=== PATIENT | male | born 1950 | race Caucasian/White ===

== ENCOUNTER → 2017-05-27 | Outpatient (CLI) | payer OTHER ==
[~2017-05-27] MED LIST: GASTROGRAFIN SOLUTION 30ML (Q9963) As Ordered; ISOVUE-370 76% 100ML VIAL (Q9967) As Ordered
== END ==
LOC: M RAD 07:38
DX: K43.2 Incisional hernia without obstruction or gangrene (principal); D73.4 Cyst of spleen
CPT/HCPCS: Q9963

== ENCOUNTER 2017-06-23 06:57 | Day surgery (SDC) | payer OTHER ==
[2017-06-23] MEDS: LR 1,000 ML IV (07:45)
[2017-06-23] MEDS ORDERED: MIDAZOLAM INJ 2 MG/2 ML VIAL (J2250) As Ordered (08:00)
[2017-06-23] MEDS ORDERED: PROPOFOL 200 MG/20 ML VIAL As Ordered (08:00)
[2017-06-23] MEDS ORDERED: ROCURONIUM BROMIDE 50 MG/5 ML VIAL As Ordered ×2 (08:00→09:26)
[2017-06-23] MEDS ORDERED: fentaNYL 100 MCG/2 ML INJECTION (J3010) As Ordered (08:01)
[2017-06-23] MEDS ORDERED: LR 1,000 ML IV ×3 (08:45→10:15)
[2017-06-23] MEDS ORDERED: ePHEDrine INJ 50 MG/ML VIAL As Ordered (09:08)
[2017-06-23] MEDS: CEFAZOLIN SOD 1 GM in APPROPRIATE DILUENT 1 EA IV (09:10)
[2017-06-23] MEDS ORDERED: ONDANSETRON 4MG/2ML VIAL (J2405) As Ordered (09:19)
[2017-06-23] MEDS ORDERED: NEOSTIGMINE 10 MG/10 ML VIAL (J2710) As Ordered (09:21)
[2017-06-23] MEDS ORDERED: GLYCOPYRROLATE INJ 0.2 MG/ML 2 ML VIAL As Ordered ×2 (09:22→09:26)
[2017-06-23] MEDS ORDERED: SUGAMMADEX SODIUM 500 MG/5 ML VIAL (BRIDION) As Ordered (09:36)
[2017-06-23] MEDS: BUPIVACAINE HCL 0.25% 10 ML VIAL As Ordered (09:43)
[2017-06-23] MEDS: LIDOCAINE W/EPINEPHRINE 1% 20ML VIAL As Ordered (09:43)
[2017-06-23] MEDS ORDERED: PERCOCET 5MG/325MG TAB As Ordered (09:59)
[2017-06-23] MEDS ORDERED: KETOROLAC 30 MG/ML VIAL (J1885) As Ordered (09:59)
[2017-06-23] MEDS: KETOROLAC 30 MG/ML VIAL (J1885) IV (10:07)
[2017-06-23] MEDS ORDERED: ONDANSETRON 4MG/2ML VIAL (J2405) IV ×2 (10:15)
[2017-06-23] MEDS ORDERED: NORCO, ANEXSIA 5/325MG TABLET (HYDROcodone/ACETAMINOPHEN) PO (10:15)
[2017-06-23] MEDS ORDERED: fentaNYL 100 MCG/2 ML INJECTION (J3010) IV (10:15)
[2017-06-23] MEDS ORDERED: MORPHINE 4 MG/ML 1ML VIAL (J2270) IV (10:15)
[2017-06-23] MEDS: PERCOCET 5MG/325MG TAB PO ×2 (10:16→10:45)
== END 2017-06-23 11:55 | disposition home or self-care (01) ==
LOC: M SDC 06:57
DX: K43.9 Ventral hernia without obstruction or gangrene (principal); K42.9 Umbilical hernia without obstruction or gangrene; E78.5 Hyperlipidemia, unspecified; E78.00 Pure hypercholesterolemia, unspecified; M17.11 Unilateral primary osteoarthritis, right knee; R06.83 Snoring; Z79.82 Long term (current) use of aspirin; Z85.46 Personal history of malignant neoplasm of prostate; Z86.59 Personal history of other mental and behavioral disorders
CPT/HCPCS: 49570

== ENCOUNTER → 2019-10-30 | Outpatient (CLI) | payer OTHER ==
[~2019-10-30] MED LIST changes: +ASPI81TA26 PO; +ATOR1TAB21 PO; -GASTROGRAFIN SOLUTION 30ML (Q9963) As Ordered; +GLUC100020 PO; -ISOVUE-370 76% 100ML VIAL (Q9967) As Ordered; +MULT1TAB10 PO
== END ==
LOC: M LABSMTC 09:11
PROVIDERS: ATTEND Anesthesiology
DX: Z03.818 Encounter for observation for suspected exposure to other biological agents ruled out (principal); Z11.59 Encounter for screening for other viral diseases
CPT/HCPCS: C9803; U0003

== ENCOUNTER 2019-11-02 09:41 | Day surgery (SDC) | payer OTHER ==
[~2019-11-02] VITALS: Ht 160 cm; Wt 82.1 kg
[~2019-11-02 09:41] MED LIST changes: +NS 1,000 ML IV ONE
--- NOTE | 2019-11-02 11:33 | ROOR ---
Patient Name: Vaughn Rodriguez Procedure Date: 11/02/2019 11:07 AM Date of : 1950 Age: 69 Room: [facility] Gender: Male Note Status: Finalized Procedure: Total Colonoscopy to Cecum + Cold Snare Polypectomy + Hemoclip Indications: High risk colon cancer surveillance: Personal history of colonic polyps, Last colonoscopy: 2014 Providers: Neftali Salas MD Referring MD: CRISTAL FINCH JR, MD Requesting Provider: Medicines: Monitored Anesthesia Care Complications: No immediate complications. Procedure: Pre-Anesthesia Assessment: - The heart rate, respiratory rate, oxygen saturations, blood pressure, adequacy of pulmonary ventilation, and response to care were monitored throughout the procedure. The Colonoscope was introduced through the anus and advanced to the cecum, identified by appendiceal orifice and ileocecal valve. The colonoscopy was performed without difficulty. The patient tolerated the procedure well. The quality of the bowel preparation was excellent. Findings: The perianal and digital rectal examinations were normal. Non-bleeding internal hemorrhoids were found during retroflexion. The hemorrhoids were small and Grade I (internal hemorrhoids that do not prolapse). A small polyp was found at 35 cm proximal to the anus. The polyp was sessile. The polyp was removed with a cold snare. Resection and retrieval were complete. To prevent bleeding after the polypectomy, one hemostatic clip was successfully placed (MR conditional). There was no bleeding at the end of the procedure. A small polyp was found in the transverse colon. The polyp was sessile. The polyp was removed with a jumbo cold forceps. Resection and retrieval were complete. The exam was otherwise without abnormality on direct and retroflexion views. Impression: - Non-bleeding internal hemorrhoids. - One small polyp at 35 cm proximal to the anus, removed with a cold snare. Resected and retrieved. Clip (MR conditional) was placed. - One small polyp in the transverse colon, removed with a jumbo cold forceps. Resected and retrieved. - The examination was otherwise normal on direct and retroflexion views. - The exam was otherwise normal to the cecum. Recommendation: - Patient has a contact number available for emergencies. The signs and symptoms of potential delayed complications were discussed with the patient. Return to normal activities tomorrow. Written discharge instructions were provided to the patient. - High fiber diet. - Discharge patient to home. - Continue present medications. - Await pathology results. - Telephone GI clinic for pathology results in 1 week. - Repeat colonoscopy in 5 years for surveillance based on pathology results. - Return to referring physician. - The findings and recommendations were discussed with the patient. Neftali Salas MD Neftali Salas MD 11/02/2019 11:33:18 AM Electronically signed by Neftali Salas MD Number of Addenda: 0 Note Initiated On: 11/02/2019 11:07 AM Estimated Blood Loss: Estimated blood loss: none.
[2019-11-02] MEDS ORDERED: propofoL 500 MG/50 ML VIAL As Ordered ONE (11:37)
[2019-11-02] MEDS ORDERED: LIDOCAINE 2% 100MG/5ML SDV (FOR ANES.) As Ordered ONE (11:37)
[2019-11-02 11:55] VITALS: BP 135/75
== END 2019-11-02 11:59 | disposition home or self-care (01) ==
LOC: M SDC 09:41
PROVIDERS: ATTEND Internal Medicine Gastroenterology
DX: Z86.010 Personal history of colon polyps (principal); K64.0 First degree hemorrhoids; K63.5 Polyp of colon; Z79.82 Long term (current) use of aspirin; Z79.899 Other long term (current) drug therapy; E78.5 Hyperlipidemia, unspecified; Z85.46 Personal history of malignant neoplasm of prostate

== ENCOUNTER → 2023-09-04 | Outpatient (REF) | payer OTHER ==
[~2023-09-04] MED LIST changes: -NS 1,000 ML IV ONE
[2023-09-04 13:59] LABS: INR 1.04; PARTIAL THROMBOPLASTIN TIME 27.9 SECONDS (24.8-34.2); PROTHROMBIN TIME 13.3 SECONDS (12.5-14.5)
== END ==
LOC: M LAB REF 12:56
PROVIDERS: ATTEND Internal Medicine
DX: Z01.818 Encounter for other preprocedural examination (principal)

== ENCOUNTER 2024-09-14 06:29 | Day surgery (SDC) | payer OTHER ==
[~2024-09-14] VITALS: Ht 160 cm; Wt 80.6 kg
[2024-09-14] MEDS ORDERED: LIDOCAINE 2% 100MG/5ML SDV (FOR ANES.) As Ordered ONE (07:20)
[2024-09-14] MEDS ORDERED: propofoL 200 MG/20 ML VIAL As Ordered ONE (07:20)
[2024-09-14] MEDS ORDERED: ePHEDrine SULFATE 25 MG/5 ML(5MG/ML) SYRINGE As Ordered ONE (07:44)
[2024-09-14 07:55] VITALS: TEMP 97.5
[2024-09-14 08:08] VITALS: BP 112/54; O2SAT 98
== END 2024-09-14 08:12 | disposition home or self-care (01) ==
LOC: M OPP 06:29
PROVIDERS: ATTEND Internal Medicine Gastroenterology
DX: Z12.11 Encounter for screening for malignant neoplasm of colon (principal); D12.3 Benign neoplasm of transverse colon; K57.30 Diverticulosis of large intestine without perforation or abscess without bleeding; K64.0 First degree hemorrhoids; Z86.0100 Personal history of colon polyps, unspecified; Z83.719 Family history of colon polyps, unspecified; E78.00 Pure hypercholesterolemia, unspecified; Z79.82 Long term (current) use of aspirin; Z79.899 Other long term (current) drug therapy; Z85.46 Personal history of malignant neoplasm of prostate; Z90.79 Acquired absence of other genital organ(s)